=== PATIENT | male | born 1975 | race Caucasian/White ===

== ENCOUNTER 2020-09-06 13:08 | Emergency (ER) | payer OTHER, SELFPAY ==
[2020-09-06 13:09] VITALS: BP 129/87; PULSE 89; RESP 16; TEMP 37.1; O2SAT 98; BMI 28.8
--- NOTE | 2020-09-06 13:41 | HMH.EDGENADL ---
ED Disposition Clinical Impression: Corneal foreign body Qualifiers: Encounter type: initial encounter Laterality: right Qualified Code(s): T15.01XA - Foreign body in cornea, right eye, initial encounter Disposition: Home, Self-Care Condition on Discharge: Good Instructions: DI for Corneal Foreign Body-Eye Additional Instructions: Use erythromycin ointment in the right eye 4 times a day until seen for follow-up. See Dr. Mccloud at [facility] tomorrow for follow-up. Call tomorrow morning at 9 AM to make appointment. Percocet as needed for pain. Dr. Macario Mccloud [facility] [address] [place] [address] Additional instructions for EYE PAIN or INJURY: Follow up with an tire builder operator as soon as possible. Return to the emergency department if severe pain, loss of vision, pus drainage, severe swelling or redness of eyelids. Additional instructions for CONTROLLED SUBSTANCES: You have been prescribed a medication that is a controlled substance. Controlled substances include pain medications known as opiates and sedative nerve medications known as benzodiazepines. Tramadol, fioricet, and gabapentin are also controlled substances. Some common opiates include: Codeine (such as Tylenol #3) Hydrocodone (Vicodin, Lortab, Lorcet, [place]) Oxycodone (Percocet, Percodan, Oxycodone, Oxy IR) Some common benzodiazepines include: Diazepam (Valium) Lorazepam (Ativan) Alprazolam (Xanax) Clonazepam (Klonopin) Oxazepam (Serax) All of these controlled substances are highly addictive and frequently abused. Misuse can and frequently does lead to addiction as well as overdose and . Medication should be stored in a locked cabinet or other secure storage unit. Do not store the medication in a motor vehicle. Short term supplies, 3 days or less, are prescribed because of the highly addictive nature of the medication. Any of the controlled substance medication NOT taken should be disposed of properly and NOT SAVED. The recommended method of disposing of unused medications is: Place the medicines in a sealable plastic bag. If the medicine is a solid, crush it or add water to dissolve it. Add something undesirable (cat litter, coffee grounds, etc.) Dispose of sealed bag in household trash Do not flush or pour unused medicines down a sink or drain. Controlled substances should not be shared, given away or sold. Because of the addictive nature and frequent abuse, these medications are sometimes stolen. These medications should be kept in a safe place where they cannot be stolen. Do not keep them in your car or purse. Lost or stolen prescriptions for controlled substances WILL NOT BE REFILLED in this emergency department, regardless of whether a police report was filed. Prescriptions: Oxycodone HCl/Acetaminophen [Percocet 5/325mg tablet] 1 tab PO Q6HP PRN #6 tab PRN Reason: Moderate To Severe Pain Transmission Status: Received by [id number] Referrals: Dustin Babcock MD [Primary Care Provider] - - Critical Care Critical Care Time: No Attestation: On 09/06/20, the high probability of a clinically significant, sudden or life threatening deterioration of the following system(s) required my full and direct attention, intervention and personal management. The time I documented below is in addition to time spent performing reported procedures but includes the following listed in this critical care notation. Medical Decision Making - Bill Inquiry Pt receiving controlled substance: Yes Bill was queried for this patient: Yes Risks and benefits of using a controlled substance: were discussed with pt by me Vital Signs: 09/06/20 13:09 09/06/20 14:02 Temperature 98.7 F 98 F Temperature Source Oral Oral Pulse Rate 78 Pulse Rate [Radial] 89 Respiratory Rate 16 16 Blood Pressure 120/74 Blood Pressure [Right Arm] 129/87 Blood Pressure Mean [R
[2020-09-06 14:02] VITALS: BP 120/74; PULSE 78; RESP 16; TEMP 36.6; O2SAT 98
== END 2020-09-06 14:09 | disposition home or self-care (01) ==
PROVIDERS: Emergency Provider Emergency Medicine; PCP Family Medicine
DX: T15.01XA Foreign body in cornea, right eye, initial encounter (principal); W45.8XXA Other foreign body or object entering through skin, initial encounter; Y92.69 Other specified industrial and construction area as the place of occurrence of the external cause; Y99.0 Civilian activity done for income or pay
CPT/HCPCS: 65220; 99281

== ENCOUNTER 2020-10-11 20:53 | Emergency (ER) | payer OTHER, SELFPAY ==
[2020-10-11 21:01] VITALS: BP 120/94; PULSE 86; RESP 18; TEMP 37.3; O2SAT 97; BMI 29.5
--- NOTE | 2020-10-11 21:07 | XR_ITS ---
PROCEDURE INFORMATION: Exam: XR Left Shoulder Exam date and time: 10/11/2020 9:07 PM Age: 45 years old Clinical indication: Injury or trauma; Blunt trauma (contusions or hematomas); Injury date: 10/11/2020; Injury details: Fell and landed on left shoulder; Patient HX: Fall pain left shoulder TECHNIQUE: Imaging protocol: XR Left shoulder. Views: 2 or more views. COMPARISON: No relevant prior studies available. FINDINGS: Bones/joints: No acute fracture. No dislocation. Minimal degenerative spurring of the AC joint. Soft tissues: Normal. IMPRESSION: No acute finding.
--- NOTE | 2020-10-11 21:10 | HMH.EDGENADL ---
ED Disposition Clinical Impression: Sprain of left shoulder Qualifiers: Encounter type: initial encounter Shoulder sprain type: unspecified sprain Qualified Code(s): S43.402A - Unspecified sprain of left shoulder joint, initial encounter Disposition: Home, Self-Care Condition on Discharge: Good Instructions: How to Use a Sling, DI for Shoulder Sprain Additional Instructions: Sling. Ice 20 minutes 4-5 times a day. Ibuprofen for pain. Aloe up with orthopedics, Dr. Barney, call tomorrow morning to make appointment. Referrals: Chani Davis MD [Primary Care Provider] - Bruce Barney MD [Staff Physician] - Forms: Work/School Release - Critical Care Critical Care Time: No Attestation: On , the high probability of a clinically significant, sudden or life threatening deterioration of the following system(s) required my full and direct attention, intervention and personal management. The time I documented below is in addition to time spent performing reported procedures but includes the following listed in this critical care notation. Medical Decision Making - Bill Inquiry Pt receiving controlled substance: No Bill was queried for this patient: Yes Vital Signs: 10/11/20 21:01 Temperature 99.2 F Temperature Source Oral Pulse Rate [Right] 86 Respiratory Rate 18 Blood Pressure [Right Arm] 120/94 H Blood Pressure Mean [Right Arm] 102 Blood Pressure Source [Right Arm] Automatic Cuff Blood Pressure Position [Right Arm] Sitting 02 Sat by Pulse Oximetry 97 Oxygen Delivery Method Room Air Orders (Tests/Meds): ORDERS Category Date Time Status XR shoulder LT min 2V Stat Exams 10/11/20 21:07 Taken - Radiology Data #1 Image(s): Shoulder Image Reviewed: Yes I reviewed the patient's radiology image Preliminary Findings: Normal/NAD Medical Decision Narrative: Patient advised the possibility of rotator cuff injury, advised to follow-up with orthopedics. General Adult HPI - General Stated complaint: AO 10/11 injured L Shoulder Time Seen by Provider: 10/11/20 21:05 - History of Present Illness HPI narrative: Complains of left shoulder injury. Fell from a standing position at about 10 or 11 this morning and landed on his left side. He said he thought he just bruised it but the pain is gotten worse throughout the day. Complains of pain along his clavicle and into the area of the deltoid muscle. Pain with range of motion. No numbness or weakness. No medications taken at home for his pain. - Related Data Previous Rx's Medication Instructions Recorded Oxycodone HCl/Acetaminophen 1 tab PO Q6HP PRN #6 tab 09/06/20 [Percocet 5/325mg tablet] Allergies Allergy/AdvReac Type Severity Reaction Status Date / Time aspirin [ASPIRIN] Allergy Intermediate Verified 08/11/17 13:38 hydrocodone [HYDROCODONE] Allergy Intermediate Verified 08/11/17 13:38 [facility] History - Hepatitis A Screen Attestation statement:: This patient has been screened for Hepatitis A risk factors. I have reviewed the patient's past medical history: Yes Medical History: Denies:: Cancer, Diabetes Mellitus Type 1, Diabetes Mellitus Type 2, MRSA Amputation: No Fractures: No - Social History Smoking Status: Never smoker Alcohol Intake: never ROS Obtained: Yes Systems reviewed as appropriate & no additional complaints - Musculoskeletal Musculoskeletal: Reports joint pain - Neurologic Neurologic: Denies numbness, Denies weakness Physical Exam - General General appearance: alert, in no apparent distress - Head Head exam: atraumatic, normocephalic - Respiratory Respiratory exam: Absent: respiratory distress - Cardiovascular Cardiovascular exam: Present: regular rate, normal rhythm - Expanded Upper Extremity Exam Left Shoulder exam: Present: normal inspection, tenderness, tenderness over AC joint. Absent: swelling, ecchymosis, deformity, crepitus, dislocation Comment: T
[2020-10-11 21:55] VITALS: BP 125/89; PULSE 81; RESP 18; TEMP 37.2; O2SAT 97
== END 2020-10-11 21:57 | disposition home or self-care (01) ==
PROVIDERS: Emergency Provider Emergency Medicine; PCP Family Medicine
DX: S43.402A Unspecified sprain of left shoulder joint, initial encounter (principal); W01.0XXA Fall on same level from slipping, tripping and stumbling without subsequent striking against object, initial encounter; Y92.019 Unspecified place in single-family (private) house as the place of occurrence of the external cause
CPT/HCPCS: 73030; 99282

== ENCOUNTER 2021-03-30 14:43 | Emergency (ER) | payer OTHER, SELFPAY ==
[2021-03-30 14:45] VITALS: BP 144/84; PULSE 97; RESP 18; TEMP 36.7; O2SAT 99; BMI 27.2
[2021-03-30 14:52] VITALS: PULSE 97; RESP 18; O2SAT 99; BMI 27.2
--- NOTE | 2021-03-30 15:36 | HMH.EDUTC ---
[facility] Disposition Clinical Impression: Acute radicular low back pain Low back strain Qualifiers: Encounter type: initial encounter Qualified Code(s): S39.012A - Strain of muscle, fascia and tendon of lower back, initial encounter Disposition: Home, Self-Care Condition on Discharge: Good Instructions: Low Back Pain, DI for Low Back Pain, Lumbar Radiculopathy, DI for Lumbar Radiculopathy Additional Instructions: Go home and rest. It would be best if you rested tomorrow too. No heavy lifting. No twisting. Take the oral medications as directed. The muscle relaxer (cyclobenzaprine--Flexeril) will make you drowsy, so don't drive or operate heavy machinery after taking it. Don't start the oral steroids (medrol dose pack) until tomorrow, since you had the shots in here today. Follow up with your regular doctor. GO TO THE ER FOR ANY WORSENING SYMPTOMS OR CONCERN, ESPECIALLY BOWEL OR BLADDER ISSUES, SADDLE AREA NUMBNESS, FEVER, ETC Prescriptions: Cyclobenzaprine HCl [Cyclobenzaprine 10mg Tab] 10 mg PO BIDP PRN #20 tab PRN Reason: Muscle Spasm Transmission Status: Received by [id number] methylPREDNISolone [Medrol] 4 mg PO DIRECTED 6 Days #21 packet Transmission Status: Received by [id number] Referrals: Abraham Babcock [Primary Care Provider] - Forms: Work/School Release Time of Disposition: 16:16 Medical Decision Making - Medical Records Medical records reviewed: No: I reviewed the patient's medical records. - Bill Inquiry Pt receiving controlled substance: No Vital Signs: 03/30/21 14:45 03/30/21 14:52 03/30/21 16:01 Temperature 98.0 F 98.0 F Temperature Source Oral Pulse Rate 97 H Pulse Rate [Left Radial] 97 H 97 H Respiratory Rate 18 18 18 Blood Pressure 144/84 H Blood Pressure [Right Arm] 144/84 H Blood Pressure Mean [Right Arm] 104 Blood Pressure Source [Right Arm] Automatic Cuff Blood Pressure Position [Right Arm] Sitting 02 Sat by Pulse Oximetry 99 99 Oxygen Delivery Method Room Air Room Air - Lab Data Lab results reviewed: Yes: I reviewed the patient's lab results. Lab Results 03/30/21 15:47: Urine Color Yellow, Urine Appearance Clear, Urine pH 6.0, Ur Specific [place] >= 1.030, Urine Protein Negative, Urine Glucose (UA) Negative, Urine Ketones Negative, Urine Blood Negative, Urine Nitrate Negative, Urine Bilirubin Negative, Urine Urobilinogen 0.2, Ur Leukocyte Esterase Negative Orders (Tests/Meds): ED MEDICATIONS Discontinued Medications Generic Name Dose Route Start Last Admin Trade Name Connor PRN Reason Stop Dose Admin Ketorolac Tromethamine 60 mg 03/30/21 15:54 03/30/21 16:00 Ketorolac 60mg/2ml Vial IM 03/30/21 15:55 60 mg ONCE ONE Administration Methylprednisolone Sodium Succinate 125 mg 03/30/21 15:54 03/30/21 16:00 Methylprednisolone Sod Succ 125mg Vial IM 03/30/21 15:55 125 mg ONCE ONE Administration [facility] HPI - General Stated complaint: swollen back, pulled at work 03/29 Time Seen by Provider: 03/30/21 15:37 Mode of Arrival: Ambulatory Source of Information: Patient Limitations: No Limitations - History of Present Illness Provider Complaint: He states that yesterday morning he began having left lower back pain that radiates down his left leg. He denies any preceding injury. He states that he felt something pull in his lower back and then his symptoms started. At first,it was so bad that it made his left leg go out and he had to get down onto the ground. At this time, he is walking fine, but bending, twisting or lifting anything causes him to have pain at a 8/10 on pain scale. He denies any fever or chills. He denies any urinary complaints. He does have a history of kidney stones, but he states that this does not seem like the same kind of pain that he has had in the past with a kidney stone. - Related Data Previous Rx's Medication Instructions Recorded Oxycodone HCl/Acetaminophen 1 tab
[2021-03-30 15:53] LABS: Apearance,Urine Clear (Clear); Bilirubin,Urine Negative (Negative); Blood, Urine Negative (Negative); Color,Urine Yellow (Yellow); Glucose,Urine (UA) Negative (Negative); Ketones,Urine Negative (Negative); Protein,Urine Negative (Negative); Specific Gravity, Urine >= 1.030 (1.005-1.030); UTC Leukocyte Esterase,Urine Negative (Negative); UTC Nitrate,Urine Negative (Negative); Urobilinogen,Urine 0.2 EU/dl (0.2)
[2021-03-30 16:01] VITALS: BP 144/84; PULSE 97; RESP 18; TEMP 36.7; O2SAT 99
== END 2021-03-30 16:20 | disposition home or self-care (01) ==
PROVIDERS: Emergency Provider Nurse Practitioner Family; PCP Pediatrics
DX: S39.012A Strain of muscle, fascia and tendon of lower back, initial encounter (principal); X50.0XXA Overexertion from strenuous movement or load, initial encounter; Y92.69 Other specified industrial and construction area as the place of occurrence of the external cause; Y99.0 Civilian activity done for income or pay
CPT/HCPCS: 81003; 96372; 99202; G0463

== ENCOUNTER → 2022-11-10 12:00 | Outpatient (CLI) | payer BC, SELFPAY ==
[2022-11-10 19:11] LABS: Basophils # 0.1 K/mm3 (0-0.2); Basophils % 0.8 % (0.1-2.0); Eosinophils # 0.3 K/mm3 (0.0-0.4); Eosinophils % 2.2 % (0.1-12.0); Hematocrit 47.2 % (42.0-52.0); Hemoglobin 15.3 g/dL (14.1-18.0); Lymphocytes # 3.5 K/mm3 (0.7-4.5); Mean Corpuscular HGB Conc 32.5 g/dL (31.8-35.4); Mean Corpuscular Volume 95.6 fl (80-94); Mean Platelet Volume 9.3 fl (7.4-10.4); Monocytes # 0.9 K/mm3 (0.1-1.0); Monocytes % 8.2 % (1.7-9.3); Neutrophils # 6.5 K/mm3 (1.8-7.8); Neutrophils % 57.7 % (37.0-80.0); Platelet Count 207 K/mm3 (142-424); Red Blood Count 4.93 M/mm3 (4.60-6.20); Red Cell Distribution Width 13.1 % (11.5-17.5); White Blood Count 11.3 K/mm3 (4.8-10.8)
[2022-11-10 19:27] LABS: Alanine Aminotransferase 85 U/L (12-78); Albumin Level 4.4 g/dl (3.5-5.0); Albumin/Globulin Ratio 1.3 (1.1-1.8); Alkaline Phosphatase 125 U/L (38-126); Aspartate Amino Transferase 45 U/L (17-59); Bilirubin,Total 0.2 mg/dl (0.2-1.3); Blood Urea Nitrogen 16 mg/dl (9-20); Carbon Dioxide 26 mmol/L (22.0-30.0); Chloride 104 mmol/L (98-107); Chol/HDL Ratio 9.5 (1-3.5); Cholesterol 200 mg/dl (140-200); Estimated Glomerular Filt Rate 72 ml/min (>60); GFR (African American) 87 ML/MIN (>60); Globulin 3.4 g/dL (1.3-3.2); Glucose 102 mg/dl (74-100); HDL Cholesterol 21 mg/dl (40-60); Sodium 142 mmol/L (136-145); Total Protein,Serum 7.8 g/dl (6.3-8.2)
[2022-11-10 19:38] LABS: Direct LDL Cholesterol 78.31 mg/dL (100-129)
[2022-11-10 19:44] LABS: 25-OH Vitamin D, Total 28.8 ng/mL (30-100); Triglycerides 657 mg/dl (30-150)
[2022-11-10 19:58] LABS: Thyroid Stimulating Hormone 2.18 uIU/mL (0.465-4.68)
[2022-11-12 09:59] LABS: HIV Screen 4th Generation wRfx Non Reactive (Non Reactive)
[2022-11-12 11:34] LABS: Testosterone,Total 183 ng/dL (264-916)
[2022-11-12 14:56] LABS: Hep A Ab, Total Positive (Negative); Hep B Core Ab, Total Negative (Negative); Hep B Surface Ab, Qual Non Reactive (.)
[2022-11-21 12:01] LABS: Hepatitis B Surface Antigen Negative
[2022-11-21 12:02] LABS: Fibrosis Score 0.05; Fibrosis Stage F0-NO FIBROSIS; Hepatitis C Antibody Non Reactive
[2022-11-21 12:03] LABS: Alpha 2-Macroglobulins, Qn 120; Apolipoprotein A-1 101; Haptoglobin 174; Necroinflammat Activity Grade A1-A2; Necroinflammat Activity Score 0.38
[2022-11-21 12:04] LABS: ALT (SGPT) P5P 79; Bilirubin, Total <0.1; GGT 62
== END ==
PROVIDERS: PCP Nurse Practitioner Family; Visit Provider Nurse Practitioner Family
DX: D72.829 Elevated white blood cell count, unspecified (principal); R73.09 Other abnormal glucose; R74.01 Elevation of levels of liver transaminase levels; B15.9 Hepatitis A without hepatic coma; B34.9 Viral infection, unspecified; E55.9 Vitamin D deficiency, unspecified; E29.1 Testicular hypofunction; Z11.4 Encounter for screening for human immunodeficiency virus [HIV]
CPT/HCPCS: 80053; 80061; 81596; 82306; 84403; 84443; 85025; 86703; 86704; 86706; 86708; 87340; 87380; 87522; G0432

== ENCOUNTER → 2022-12-01 16:22 | Outpatient (CLI) | payer BC, SELFPAY ==
[2022-12-03 08:31] LABS: Testosterone,Total 332 ng/dL (264-916)
== END ==
PROVIDERS: PCP Nurse Practitioner Family; Visit Provider Nurse Practitioner Family
DX: R79.89 Other specified abnormal findings of blood chemistry (principal)
CPT/HCPCS: 36415; 84403

== ENCOUNTER 2023-01-02 16:30 | Outpatient (RCR) | payer BC, SELFPAY ==
--- NOTE | 2022-12-19 17:02 | HMH.PTOPEV ---
PT Outpatient Evaluation Rehab PT Outpatient Evaluation Start: 12/19/22 16:04 Freq: Status: Active Protocol: Document 12/19/22 16:04 CAROLANNALEK (Rec: 12/19/22 17:02 CECILIO [id number]) E-signed By Koki Walker, PT Outpatient Therapy Subjective History Subjective History Pt is a 47 y/o male who reports chronic L shoulder pain with history of recurrent subluxations. Pt reports he also fell on the left shoulder in 2020 and had surgery in November of 2020 although he is unable to recall specifics of the surgery. Pt reports he thinks the ball of the shoulder was fractured. Pt reports following the surgery he noticed no change in pain or of the grinding sensation he experiences. Pt reports he works 80 hrs a week so he did not have time for rehab. Pt denies recent subluxations or dislocations. Pt reports current symptoms of L shoulder fatigue, weakness and a grinding sensation with repetitive activities at work. Pt describes pain as a deep ache. Pt denies clicking or clunking of the shoulder. Pt reports his left arm often goes numb only while lying on the left side at night time. Pt reports his shoulder is bone on bone but denies having recent imaging. Pt denies further comorbidities to report. Occupation: [employer] New diagnosis of cancer in past 12 No months? Chief Complaint Stiff,Clicks,Weakness Symptom Type Ache Symptoms Relieved By Rest/Positioning Symptoms Aggravated By Physical Activity Prior Functional Limitations None Current Functional Limitations Reaching,Lifting,Sleeping Symptom Description Intermittent Level of pain today (0-10) 0 Pain scale - at its best (0-10) 0 Pain scale - at its worst (0-10) 8 Shoulder/Elbow Eval Shoulder Objective Measurements Posture Shoulder Posture Sitting Posit
== END 2023-01-02 16:35 | disposition home or self-care (01) ==
LOC: PT 16:30
PROVIDERS: PCP Nurse Practitioner Family; Visit Provider Nurse Practitioner Family
DX: M25.512 Pain in left shoulder (principal); G89.29 Other chronic pain
CPT/HCPCS: 97010; 97014; 97035; 97110; 97163; G0283